=== PATIENT | female | born 1975 | race Caucasian/White ===

== ENCOUNTER → 2016-06-24 | Outpatient (CLI) | payer OTHER ==
[~2016-06-24] MED LIST: ALPR0.25; HYDR200T PO; IBUP800T; OXYC-305
== END | disposition home or self-care (01) ==
LOC: RAD 12:07
PROVIDERS: ATTEND Anesthesiology
DX: Z01.818 Encounter for other preprocedural examination (principal); M51.36 Other intervertebral disc degeneration, lumbar region
CPT/HCPCS: 71020

== ENCOUNTER → 2017-02-19 | Outpatient (CLI) | payer OTHER ==
[~2017-02-19] MED LIST changes: +IBUP-1223; -IBUP800T
== END | disposition home or self-care (01) ==
LOC: RAD 09:52
PROVIDERS: ATTEND Nurse Practitioner
DX: M47.816 Spondylosis without myelopathy or radiculopathy, lumbar region (principal)
CPT/HCPCS: 72114

== ENCOUNTER → 2017-04-01 | Outpatient (CLI) | payer OTHER | END | disposition home or self-care (01) | LOC: CFH 12:06 | PROVIDERS: ATTEND Nurse Practitioner | DX: M51.16 Intervertebral disc disorders with radiculopathy, lumbar region (principal); M47.26 Other spondylosis with radiculopathy, lumbar region; M51.36 Other intervertebral disc degeneration, lumbar region; Z98.890 Other specified postprocedural states | CPT/HCPCS: 72148 ==

== ENCOUNTER 2017-08-04 05:40 | Day surgery (SDC) | payer OTHER, MEDICAID ==
[2017-08-02 13:33] LABS: BASOPHILS # (AUTO) 0.03 x10^3/uL (0-0.1); BASOPHILS % (AUTO) 0 % (0-1); EOSINOPHILS # (AUTO) 0.15 x10^3/uL (0-0.4); EOSINOPHILS % (AUTO) 2 % (1-7); LYMPHOCYTES % (AUTO) 36 % (22-44); MD NO; MEAN CORPUSCULAR HEMOGLOBIN 28.8 pg (27.0-34.8); MEAN CORPUSCULAR HGB CONC 33.2 g/dL (32.4-35.8); MEAN CORPUSCULAR VOLUME 86.9 fL (80-100); MEAN PLATELET VOLUME 9.1 fL (7.4-10.4); MONOCYTES # (AUTO) 0.54 x10^3/uL (0.2-0.8); MONOCYTES % (AUTO) 7 % (2-9); NEUTROPHILS # (AUTO) 4.49 x10^3/uL (1.8-6.8); NEUTROPHILS % (AUTO) 55 % (42-75); PLATELET COUNT 275 x10^3/uL (130-400); RED BLOOD COUNT 4.75 x10^6/uL (3.82-5.3); RED CELL DISTRIBUTION WIDTH 15.7 % (9.6-15.2)
[2017-08-02 13:48] LABS: ALANINE AMINOTRANSFERASE 18 U/L (12-78); ALBUMIN 3.7 g/dL (3.4-5.0); ANION GAP 8 mmol/L (5-15); CALCIUM 9.1 mg/dL (8.5-10.1); CHLORIDE 109 mmol/L (98-107); CREATININE 0.73 mg/dL (0.55-1.02)
[2017-08-02 13:52] LABS: ALKALINE PHOSPHATASE 75 U/L (45-117); BILIRUBIN,TOTAL 0.3 mg/dL (0.2-1.0); TOTAL PROTEIN 7.4 g/dL (6.4-8.2)
[~2017-08-04] VITALS: Ht 170.2 cm; Wt 74.0 kg
[~2017-08-04 05:40] MED LIST changes: -HYDR200T PO; +HYDR200T72 PO; +ONDA8TAB9 PO; +OXYC-306 PO; +PANT20TA2 PO; +PREG150C PO; +TRAZ100T15 PO; +VARE0.5T PO
[2017-08-04] MEDS ORDERED: LACTATED RINGERS 1,000 ML IV SCH (06:36)
[2017-08-04 06:39] VITALS: BP 138/90
[2017-08-04] MEDS ORDERED: BUPIVACAINE 0.25% ONE (06:47)
[2017-08-04] MEDS ORDERED: FLUORESCEIN SODIUM 500 MG/5 ML ONE (06:47)
[2017-08-04] MEDS ORDERED: EPINEPHRINE 1 MG/ML, 1ML ONE (06:47)
[2017-08-04] MEDS ORDERED: OxyconTIN ER 20 MG TAB.ER PO ONE (07:00)
[2017-08-04] MEDS ORDERED: SCOPOLAMINE PATCH, 1.5MG PATCH.TD72 TD ONE ×2 (07:00→07:11)
[2017-08-04] MEDS ORDERED: ONDANSETRON ODT 8 MG PO ONE (07:00)
[2017-08-04] MEDS ORDERED: GABAPENTIN 300 MG CAPSULE PO ONE (07:00)
[2017-08-04] MEDS ORDERED: ACETAMINOPHEN 500 MG TABLET PO ONE (07:00)
[2017-08-04] MEDS ORDERED: MIDAZOLAM 1 MG/ML, 2ML ONE (07:07)
[2017-08-04] MEDS ORDERED: FENTANYL PF 250 MCG/5ML ONE (07:08)
[2017-08-04] MEDS ORDERED: PROPOFOL 10 MG/ML, 20ML ONE (07:09)
[2017-08-04] MEDS ORDERED: LIDOCAINE 2%, 10ML ONE (07:09)
[2017-08-04] MEDS ORDERED: ROCURONIUM 10MG/ML,5ML ONE (07:09)
[2017-08-04] MEDS ORDERED: CEFOTETAN PMX 2GM/50ML 50 ML ONE (07:10)
[2017-08-04] MEDS ORDERED: PHENYLEPHRINE 10 MG/ML ONE (07:10)
[2017-08-04] MEDS ORDERED: DEXAMETHASONE 4 MG/ML, 1ML ONE ×2 (07:11)
[2017-08-04] MEDS ORDERED: OxyconTIN ER 20 MG TAB.ER ONE (07:11)
[2017-08-04] MEDS ORDERED: ACETAMINOPHEN 500 MG TABLET ONE (07:11)
[2017-08-04] MEDS ORDERED: GABAPENTIN 300 MG CAPSULE ONE (07:12)
[2017-08-04] MEDS ORDERED: ONDANSETRON ODT 8 MG ONE (07:12)
[2017-08-04] MEDS ORDERED: DEXMEDETOMIDINE 200 MCG/2 ML ONE (07:28)
[2017-08-04] MEDS ORDERED: PROPOFOL 10 MG/ML, 50ML ONE (07:30)
[2017-08-04] MEDS ORDERED: OXYcodone 5 MG/5 ML ORAL.SOL UDC PO PRN ×2 (08:30→13:00)
[2017-08-04] MEDS ORDERED: hydrALAzine 20 MG/ML, 1ML IV PRN (08:30)
[2017-08-04] MEDS ORDERED: LORazepam 2 MG/ML, 1ML IVPush PRN (08:30)
[2017-08-04] MEDS ORDERED: PROMETHAZINE 25 MG/ML, 1ML IV PRN (08:30)
[2017-08-04] MEDS ORDERED: MEPERIDINE/PF 25MG/0.5ML IVPush PRN (08:30)
[2017-08-04] MEDS ORDERED: FENTANYL PF 100 MCG/2ML IV PRN (08:30)
[2017-08-04] MEDS ORDERED: morphine SULFATE 10 MG/ML, 1ML IV PRN (08:30)
[2017-08-04] MEDS ORDERED: LABETALOL 5MG/ML, 20ML IV PRN (08:30)
[2017-08-04] MEDS ORDERED: MEPERIDINE/PF 50 MG/ML ONE (09:24)
[2017-08-04] MEDS ORDERED: OXYcodone 5 MG/5 ML ORAL.SOL UDC ONE ×2 (10:09→14:11)
[2017-08-04] MEDS ORDERED: morphine SULFATE 10 MG/ML, 1ML IVPush PRN (13:00)
[2017-08-04] MEDS ORDERED: HYDROmorphone 2 MG/ML, 1ML IVPush PRN (13:00)
[2017-08-04 14:13] LABS: MEAN CORPUSCULAR HEMOGLOBIN 29.3 pg (27.0-34.8); MEAN CORPUSCULAR HGB CONC 33.5 g/dL (32.4-35.8); MEAN CORPUSCULAR VOLUME 87.5 fL (80-100); MEAN PLATELET VOLUME 8.8 fL (7.4-10.4); PLATELET COUNT 226 x10^3/uL (130-400); RED BLOOD COUNT 3.93 x10^6/uL (3.82-5.3); RED CELL DISTRIBUTION WIDTH 15.7 % (9.6-15.2)
[2017-08-04 14:20] LABS: ANION GAP 12 mmol/L (5-15); CALCIUM 8.2 mg/dL (8.5-10.1); CHLORIDE 109 mmol/L (98-107)
[2017-08-04 14:23] LABS: ALANINE AMINOTRANSFERASE 19 U/L (12-78); ALKALINE PHOSPHATASE 60 U/L (45-117); BILIRUBIN,TOTAL 0.2 mg/dL (0.2-1.0); CREATININE 0.93 mg/dL (0.55-1.02)
[2017-08-04 14:54] LABS: BASOPHILS % (AUTO) 0 % (0-1); EOSINOPHILS # (AUTO) 0.01 x10^3/uL (0-0.4); EOSINOPHILS % (AUTO) 0 % (1-7); LYMPHOCYTES # (AUTO) 0.85 x10^3/uL (1-3.4); LYMPHOCYTES % (AUTO) 7 % (22-44); MD SCAN; MONOCYTES # (AUTO) 0.08 x10^3/uL (0.2-0.8); MONOCYTES % (AUTO) 1 % (2-9); NEUTROPHILS # (AUTO) 10.84 x10^3/uL (1.8-6.8); NEUTROPHILS % (AUTO) 92 % (42-75)
== END 2017-08-04 16:15 ==
LOC: OUT 05:40
PROVIDERS: ATTEND Obstetrics & Gynecology
DX: N92.0 Excessive and frequent menstruation with regular cycle (principal); N85.8 Other specified noninflammatory disorders of uterus; N80.0 Endometriosis of uterus; J45.909 Unspecified asthma, uncomplicated; G43.909 Migraine, unspecified, not intractable, without status migrainosus; Z72.0 Tobacco use
CPT/HCPCS: 36415; 58262; 80053; 84703; 85025; 86850; 86900; 88307; J0171; J1100; J2175; J2250; J2370; J2704; J3010; J3490; J7120; Q0162; S0074

== ENCOUNTER → 2018-03-17 | Outpatient (CLI) | payer OTHER, MEDICAID ==
[~2018-03-17] MED LIST changes: +TRAZ-137 PO; -TRAZ100T15 PO
== END | disposition home or self-care (01) ==
LOC: CFH 13:24
PROVIDERS: ATTEND Nurse Practitioner
DX: M25.511 Pain in right shoulder (principal)

== ENCOUNTER 2018-07-08 09:45 | Emergency (ER) | payer OTHER, MEDICAID ==
[~2018-07-08] VITALS: Ht 170.2 cm; Wt 76.2 kg
[2018-07-08 09:55] VITALS: BP 124/89
--- NOTE | 2018-07-08 10:20 | NUR ---
computer system not allowing access to complete medication reconciliation.
== END 2018-07-08 10:26 | disposition home or self-care (01) ==
LOC: ED 10:15
DX: J01.10 Acute frontal sinusitis, unspecified (principal); J01.00 Acute maxillary sinusitis, unspecified
CPT/HCPCS: 99283

== ENCOUNTER 2018-07-13 22:09 | Emergency (ER) | payer OTHER, MEDICAID ==
[~2018-07-13] VITALS: Ht 170.2 cm; Wt 76.8 kg
--- NOTE | 2018-07-13 22:41 | NUR ---
PT TO CT
[2018-07-13] MEDS ORDERED: METOCLOPRAMIDE 5 MG/ML, 2ML ONE (22:47)
[2018-07-13] MEDS ORDERED: KETOROLAC 30 MG/1 ML ONE (22:47)
[2018-07-13] MEDS ORDERED: DIPHENHYDRAMINE 50 MG/ML, 1ML ONE (22:47)
[2018-07-13] MEDS ORDERED: METOCLOPRAMIDE 5 MG/ML, 2ML IVPush ONE (23:00)
[2018-07-13] MEDS ORDERED: DIPHENHYDRAMINE 50 MG/ML, 1ML IVPush ONE (23:00)
[2018-07-13] MEDS ORDERED: SODIUM CHLORIDE 0.9% 1,000ML IVBOLUS ONE (23:00)
[2018-07-13] MEDS ORDERED: KETOROLAC 30 MG/1 ML IVPush ONE (23:00)
[2018-07-13 23:24] VITALS: BP 174/96
--- NOTE | 2018-07-13 23:25 | NUR ---
PT MEDICATED PER MAR
== END 2018-07-14 00:31 | disposition home or self-care (01) ==
LOC: ED 23:30
DX: G43.909 Migraine, unspecified, not intractable, without status migrainosus (principal); G89.29 Other chronic pain
CPT/HCPCS: 70450; 96374; 96375; 99284; J1200; J1885; J2765; J7030

== ENCOUNTER 2018-07-15 21:58 | Emergency (ER) | payer OTHER, MEDICAID ==
[~2018-07-15] VITALS: Ht 170.2 cm; Wt 78.5 kg
[2018-07-15] MEDS ORDERED: PROCHLORPERAZINE 5 MG/ML, 2ML IVPush ONE (22:30)
[2018-07-15] MEDS ORDERED: KETOROLAC 30 MG/1 ML IVPush ONE (22:30)
[2018-07-15] MEDS ORDERED: DIPHENHYDRAMINE 50 MG/ML, 1ML IVPush ONE ×2 (22:30→23:00)
[2018-07-15] MEDS ORDERED: KETOROLAC 30 MG/1 ML ONE (22:46)
[2018-07-15] MEDS ORDERED: PROCHLORPERAZINE 5 MG/ML, 2ML ONE (22:46)
[2018-07-15] MEDS ORDERED: DIPHENHYDRAMINE 50 MG/ML, 1ML ONE (22:46)
[2018-07-15 22:48] LABS: BASOPHILS # (AUTO) 0.24 x10^3/uL (0-0.1); BASOPHILS % (AUTO) 2 % (0-1); EOSINOPHILS # (AUTO) 0.22 x10^3/uL (0-0.4); EOSINOPHILS % (AUTO) 2 % (1-7); LYMPHOCYTES # (AUTO) 4.94 x10^3/uL (1-3.4); LYMPHOCYTES % (AUTO) 36 % (22-44); MD NO; MEAN CORPUSCULAR HGB CONC 34.5 g/dL (32.4-35.8); MEAN CORPUSCULAR VOLUME 92.7 fL (80-100); MEAN PLATELET VOLUME 9.6 fL (7.4-10.4); MONOCYTES # (AUTO) 0.62 x10^3/uL (0.2-0.8); MONOCYTES % (AUTO) 5 % (2-9); NEUTROPHILS # (AUTO) 7.58 x10^3/uL (1.8-6.8); NEUTROPHILS % (AUTO) 56 % (42-75); PLATELET COUNT 215 x10^3/uL (130-400); RED BLOOD COUNT 4.46 x10^6/uL (3.82-5.3); RED CELL DISTRIBUTION WIDTH 13.1 % (9.6-15.2)
--- NOTE | 2018-07-15 22:55 | NUR ---
PT REPORTS A HEADACHE X4 DAYS AND SWELLING IN FEET. VS STABLE. CALL LIGHT IN PLACE. WILL CONTINUE TO MONITOR.
[2018-07-15 22:59] LABS: ALBUMIN 3.5 g/dL (3.4-5.0); ANION GAP 6 mmol/L (5-15); CALCIUM 8.6 mg/dL (8.5-10.1); CHLORIDE 110 mmol/L (98-107)
[2018-07-15 23:11] LABS: ALANINE AMINOTRANSFERASE 25 U/L (12-78); ALKALINE PHOSPHATASE 67 U/L (45-117); BILIRUBIN,TOTAL 0.5 mg/dL (0.2-1.0); CREATININE 0.93 mg/dL (0.55-1.02); TOTAL PROTEIN 6.9 g/dL (6.4-8.2)
--- NOTE | 2018-07-15 23:42 | NUR ---
PT REPORTS SHE CAN NOT URINATE AT THIS TIME "I WENT BEFORE I GOT HERE." PT DOES REPORT RELIEF FROM HER HEADACHE. PT NOW RESTING IN ROOM. NO ACUTE DISTRESS NOTED. WILL CONTINUE TO MONITOR.
[2018-07-16 00:06] VITALS: BP 121/81
--- NOTE | 2018-07-16 00:07 | NUR ---
NO URINE NEEDED PER DR BAZZI. PT DISCHARGED
== END 2018-07-16 00:17 | disposition home or self-care (01) ==
LOC: ED 23:16
DX: G43.019 Migraine without aura, intractable, without status migrainosus (principal); M54.5 Low back pain
CPT/HCPCS: 36415; 80053; 84443; 85025; 96374; 96375; 99283; J0780; J1200; J1885

== ENCOUNTER → 2018-08-31 | Outpatient (CLI) | payer OTHER, MEDICAID ==
[~2018-08-31] MED LIST changes: +GADOBUTROL 7.5 MMOL/7.5 ML PFS ONE
== END | disposition home or self-care (01) ==
LOC: CFH 07:59
PROVIDERS: ATTEND Nurse Practitioner
DX: G44.52 New daily persistent headache (NDPH) (principal); R53.1 Weakness
CPT/HCPCS: 70553; A9585

== ENCOUNTER 2018-09-18 00:57 | Emergency (ER) | payer OTHER, MEDICAID ==
[~2018-09-18] VITALS: Ht 170.2 cm; Wt 75.9 kg
[~2018-09-18 00:57] MED LIST changes: -GADOBUTROL 7.5 MMOL/7.5 ML PFS ONE
[2018-09-18 01:00] VITALS: BP 136/81
--- NOTE | 2018-09-18 01:06 | NUR ---
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 States awaiting consult for neurosurgery. C/o L sided extremity swelling and numbness tingling in L side, intermittently. Neuro otherwise appears intact in room. PERRLA. All monitoring applied. Call light within reach. Md at bedside for assessment.
[2018-09-18] MEDS ORDERED: DIPHENHYDRAMINE 50 MG/ML, 1ML ONE (01:19)
[2018-09-18] MEDS ORDERED: PROCHLORPERAZINE 5 MG/ML, 2ML ONE (01:19)
[2018-09-18] MEDS ORDERED: KETOROLAC 30 MG/1 ML ONE (01:19)
--- NOTE | 2018-09-18 01:20 | NUR ---
Pt in us. Tb medicated upon return.
[2018-09-18] MEDS ORDERED: DIPHENHYDRAMINE 50 MG/ML, 1ML IVPush ONE (01:30)
[2018-09-18] MEDS ORDERED: PROCHLORPERAZINE 5 MG/ML, 2ML IVPush ONE (01:30)
[2018-09-18] MEDS ORDERED: KETOROLAC 30 MG/1 ML IVPush ONE (01:30)
== END 2018-09-18 02:29 | disposition home or self-care (01) ==
LOC: ED 02:03
DX: G44.219 Episodic tension-type headache, not intractable (principal); G43.909 Migraine, unspecified, not intractable, without status migrainosus; F17.200 Nicotine dependence, unspecified, uncomplicated; M79.89 Other specified soft tissue disorders
CPT/HCPCS: 93971; 96374; 96375; 99284; J0780; J1200; J1885

== ENCOUNTER 2019-01-10 08:53 | Outpatient (CLI) | payer OTHER, MEDICAID ==
[2019-01-10] MEDS ORDERED: GADOTERATE 7.5 MMOL/15 ML SYR ONE (09:58)
== END 2019-01-10 23:59 | disposition home or self-care (01) ==
LOC: CFH 08:53
PROVIDERS: ATTEND Nurse Practitioner Family
DX: D32.9 Benign neoplasm of meninges, unspecified (principal); J32.0 Chronic maxillary sinusitis
CPT/HCPCS: 70544; 70553; A9575

== ENCOUNTER 2019-04-03 00:19 | Emergency (ER) | payer OTHER, MEDICAID ==
[~2019-04-03] VITALS: Ht 170.2 cm; Wt 68.5 kg
[2019-04-03 00:20] VITALS: BP 157/97
[2019-04-03 00:58] LABS: MICROSCOPIC NOT IND
[2019-04-03 01:02] LABS: CULTURE INDICATED? NO
[2019-04-03] MEDS ORDERED: METHOCARBAMOL 750 MG TABLET ONE (01:38)
[2019-04-03] MEDS ORDERED: IBUPROFEN 800 MG TABLET ONE (01:38)
[2019-04-03] MEDS ORDERED: IBUPROFEN 800 MG TABLET PO ONE (02:00)
[2019-04-03] MEDS ORDERED: METHOCARBAMOL 750 MG TABLET PO ONE (02:00)
== END 2019-04-03 01:44 | disposition home or self-care (01) ==
LOC: ED 00:48
DX: M54.5 Low back pain (principal); J32.0 Chronic maxillary sinusitis; R05 Cough; F17.200 Nicotine dependence, unspecified, uncomplicated; Z90.89 Acquired absence of other organs
CPT/HCPCS: 81003; 99283

== ENCOUNTER 2019-09-01 10:40 | Outpatient (CLI) | payer MEDICAID, OTHER ==
[~2019-09-01 10:40] MED LIST changes: -TRAZ-137 PO; +TRAZ-175 PO
[2019-09-01] MEDS ORDERED: SUMA100T4 PO (11:28)
[2019-09-01] MEDS ORDERED: [UNRECOGNIZED DRUG - OTHER] PO (11:28)
[2019-09-01] MEDS ORDERED: DOX PO (11:28)
[2019-09-01] MEDS ORDERED: AMIT75TA PO (11:28)
[2019-09-01 11:54] LABS: BASOPHILS # (AUTO) 0.03 x10^3/uL (0-0.1); BASOPHILS % (AUTO) 0 % (0-1); EOSINOPHILS % (AUTO) 0 % (1-7); LYMPHOCYTES # (AUTO) 1.98 x10^3/uL (1-3.4); LYMPHOCYTES % (AUTO) 12 % (22-44); MD NO; MEAN CORPUSCULAR HEMOGLOBIN 31.5 pg (27.0-34.8); MEAN CORPUSCULAR HGB CONC 33.6 g/dL (32.4-35.8); MEAN CORPUSCULAR VOLUME 93.8 fL (80-100); MONOCYTES # (AUTO) 0.62 x10^3/uL (0.2-0.8); MONOCYTES % (AUTO) 4 % (2-9); NEUTROPHILS % (AUTO) 84 % (42-75); PLATELET COUNT 232 x10^3/uL (130-400); RED BLOOD COUNT 4.66 x10^6/uL (3.82-5.3); RED CELL DISTRIBUTION WIDTH 13.7 % (9.6-15.2)
[2019-09-01 12:03] LABS: ALANINE AMINOTRANSFERASE 17 U/L (12-78); ALBUMIN 4.2 g/dL (3.4-5.0); ANION GAP 9 mmol/L (5-15); CALCIUM 9.5 mg/dL (8.5-10.1); CHLORIDE 107 mmol/L (98-107); CREATININE 0.77 mg/dL (0.55-1.02)
[2019-09-01 12:05] LABS: ALKALINE PHOSPHATASE 65 U/L (45-117); BILIRUBIN,TOTAL 0.3 mg/dL (0.2-1.0); TOTAL PROTEIN 7.5 g/dL (6.4-8.2)
[2019-09-06] MEDS ORDERED: MIDAZOLAM 1 MG/ML, 2ML ONE (15:53)
[2019-09-06] MEDS ORDERED: FENTANYL PF 250 MCG/5ML ONE ×2 (15:54→16:59)
[2019-09-06] MEDS ORDERED: CEFAZOLIN 1,000 MG ONE (16:45)
[2019-09-06] MEDS ORDERED: DEXAMETHASONE 4 MG/ML, 1ML ONE (16:45)
[2019-09-06] MEDS ORDERED: ONDANSETRON 2MG/ML, 2ML ONE (16:45)
[2019-09-06] MEDS ORDERED: PROPOFOL 10 MG/ML, 20ML ONE (16:45)
[2019-09-06] MEDS ORDERED: ROCURONIUM 10MG/ML,5ML ONE (16:45)
[2019-09-06] MEDS ORDERED: SUCCINYLCHOLINE 20 MG/ML, 10ML ONE (16:45)
[2019-09-06] MEDS ORDERED: NEOSTIGMINE 1 MG/ML, 10ML ONE (16:45)
[2019-09-06] MEDS ORDERED: GLYCOPYRROLATE 0.2MG/1ML, 5ML ONE (16:45)
[2019-09-06] MEDS ORDERED: SUGAMMADEX 200 MG/2 ML IVPush ONE (18:03)
[2019-09-06] MEDS ORDERED: KETOROLAC 30 MG/1 ML ONE (18:10)
== END 2019-09-01 23:59 | disposition home or self-care (01) ==
LOC: STAR 10:40
PROVIDERS: ATTEND Obstetrics & Gynecology
DX: Z01.818 Encounter for other preprocedural examination (principal); N83.201 Unspecified ovarian cyst, right side; I49.8 Other specified cardiac arrhythmias
CPT/HCPCS: 36415; 71046; 80053; 85025; 93005; U0001-CS

== ENCOUNTER 2019-09-06 15:00 | Day surgery (SDC) | payer MEDICAID, OTHER ==
[~2019-09-06] VITALS: Ht 170.2 cm; Wt 65.1 kg
[2019-09-06 14:45] VITALS: BP 131/88
[~2019-09-06 15:00] MED LIST changes: +AMIT75TA PO; +CHLORHEXIDINE 15 ML UDC MM STA; +DOX PO; +LACTATED RINGERS 1,000 ML IV SCH; +LIDOCAINE-MPF 1%, 2ML INFIL STA; +SUMA100T4 PO; +[UNRECOGNIZED DRUG - OTHER] PO
[2019-09-06] MEDS ORDERED: ACETAMINOPHEN 500 MG TABLET PO ONE (15:13)
[2019-09-06] MEDS ORDERED: PHENAZOPYRIDINE 200 MG TABLET ONE (15:27)
[2019-09-06] MEDS ORDERED: PHENAZOPYRIDINE 200 MG TABLET PO STA (15:27)
[2019-09-06] MEDS ORDERED: FLUORESCEIN SODIUM 500 MG/5 ML ONE (15:41)
[2019-09-06] MEDS ORDERED: BUPIVACAINE/PF-EPI 0.25% 1:200K ONE (15:41)
[2019-09-06] MEDS ORDERED: BACITRACIN 50,000 UNIT ONE (15:41)
[2019-09-06] MEDS ORDERED: MIDAZOLAM 1 MG/ML, 2ML ONE (16:22)
[2019-09-06] MEDS ORDERED: PROPOFOL 10 MG/ML, 20ML ONE (16:22)
[2019-09-06] MEDS ORDERED: DEXAMETHASONE 4 MG/ML, 1ML ONE (16:22)
[2019-09-06] MEDS ORDERED: KETOROLAC 30 MG/1 ML ONE (16:22)
[2019-09-06] MEDS ORDERED: SUGAMMADEX 200 MG/2 ML IVPush ONE (16:22)
[2019-09-06] MEDS ORDERED: ROCURONIUM 10 MG/ML,10ML ONE (16:22)
[2019-09-06] MEDS ORDERED: CEFAZOLIN 1,000 MG ONE (16:22)
[2019-09-06] MEDS ORDERED: ONDANSETRON 2MG/ML, 2ML ONE (16:22)
[2019-09-06] MEDS ORDERED: PHENAZOPYRIDINE 200 MG TABLET PO ONE (16:30)
[2019-09-06] MEDS ORDERED: HYDROmorphone 1 MG/ML, 1ML INJ IVPush PRN (17:30)
[2019-09-06] MEDS ORDERED: DIPHENHYDRAMINE 50 MG/ML, 1ML IVPush PRN (17:30)
[2019-09-06] MEDS ORDERED: ONDANSETRON 2MG/ML, 2ML IVPush PRN (17:30)
[2019-09-06] MEDS ORDERED: PROMETHAZINE 25 MG SUPP PR PRN (17:30)
[2019-09-06] MEDS ORDERED: LABETALOL 5MG/ML, 20ML IV PRN (17:30)
[2019-09-06] MEDS ORDERED: METHOCARBAMOL 1,000 MG in DEXTROSE 5% 100 ML IV PRN (17:30)
[2019-09-06] MEDS ORDERED: LORazepam 2 MG/ML, 1ML IVPush PRN (17:30)
[2019-09-06] MEDS ORDERED: OXYcodone 5 MG/5 ML ORAL.SOL UDC PO PRN (17:30)
[2019-09-06] MEDS ORDERED: MEPERIDINE/PF 25MG/0.5ML IVPush PRN (17:30)
[2019-09-06] MEDS ORDERED: DIAZEPAM 5 MG/ML, 2ML IVPush PRN (17:30)
[2019-09-06] MEDS: PROMETHAZINE 25 MG/ML, 1ML IVPush PRN ×2 (18:29→18:53)
[2019-09-06] MEDS ORDERED: FENTANYL PF 100 MCG/2ML ONE (18:32)
[2019-09-06] MEDS ORDERED: PROMETHAZINE 25 MG/ML, 1ML ONE (18:32)
[2019-09-06] MEDS ORDERED: DIAZEPAM 5 MG/ML, 2ML ONE (18:32)
[2019-09-06] MEDS: FENTANYL PF 100 MCG/2ML IV PRN ×2 (18:40→18:53)
[2019-09-06] MEDS ORDERED: HYDROmorphone 1 MG/ML, 1ML INJ ONE (18:55)
[2019-09-06] MEDS ORDERED: OXYcodone/APAP 5/325MG TABLET PO PRN (20:00)
[2019-09-06] MEDS ORDERED: morphine SULFATE 10 MG/ML, 1ML IV PRN (20:00)
[2019-09-06] MEDS ORDERED: IBUP-11 PO (20:24)
[2019-09-06] MEDS ORDERED: DOCU-131 PO (20:24)
[2019-09-06] MEDS ORDERED: SUMATRIPTAN 100 MG TABLET PO PRN (20:30)
[2019-09-06] MEDS ORDERED: OXYcodone/APAP 7.5/325MG TABLET PO SCH (20:30)
[2019-09-06] MEDS ORDERED: [UNRECOGNIZED DRUG - REMARK] MC SCH (20:30)
[2019-09-06] MEDS ORDERED: LACTATED RINGERS 1,000 ML IV SCH (20:30)
[2019-09-06] MEDS ORDERED: PREGABALIN 75 MG CAPSULE PO SCH (21:00)
[2019-09-06] MEDS ORDERED: DOXEPIN 25 MG CAPSULE PO SCH (21:00)
[2019-09-06] MEDS ORDERED: DOCUSATE 100 MG CAPSULE PO SCH (21:00)
[2019-09-06] MEDS ORDERED: ONDANSETRON 8 MG TABLET PO SCH (21:00)
[2019-09-06] MEDS ORDERED: HYDROXYCHLOROQUINE 200 MG TABLET PO SCH (21:00)
[2019-09-06] MEDS ORDERED: AMITRIPTYLINE 75 MG TABLET PO SCH (21:00)
[2019-09-07] MEDS ORDERED: KETOROLAC 30 MG/1 ML IV PRN
[2019-09-07] MEDS ORDERED: IBUPROFEN 600 MG TABLET PO SCH (06:00)
== END 2019-09-06 23:10 | disposition home or self-care (01) ==
LOC: OR 15:00 → 4NE 19:30 → OR 23:10
PROVIDERS: ATTEND Obstetrics & Gynecology
DX: R10.31 Right lower quadrant pain (principal); Z11.59 Encounter for screening for other viral diseases; D27.1 Benign neoplasm of left ovary; N39.3 Stress incontinence (female) (male); N81.10 Cystocele, unspecified; N73.6 Female pelvic peritoneal adhesions (postinfective); M32.9 Systemic lupus erythematosus, unspecified; J45.909 Unspecified asthma, uncomplicated; G43.909 Migraine, unspecified, not intractable, without status migrainosus; F17.210 Nicotine dependence, cigarettes, uncomplicated; Z79.891 Long term (current) use of opiate analgesic; Z79.899 Other long term (current) drug therapy; Z90.710 Acquired absence of both cervix and uterus; Z90.79 Acquired absence of other genital organ(s); Z98.890 Other specified postprocedural states
CPT/HCPCS: 36415; 57240; 57288; 58661; 86850; 86900; 88305; C1771; J0690; J1100; J1170; J1885; J2250; J2405; J2550; J2704; J3010; J3360; J7120; G0378; J2710; J0330

== ENCOUNTER 2019-12-18 20:44 | Inpatient (IN) | payer MEDICAID ==
[~2019-12-18] VITALS: Ht 170.2 cm; Wt 67.1 kg
[~2019-12-18 20:44] MED LIST changes: -CHLORHEXIDINE 15 ML UDC MM STA; +DOCU-131 PO; +IBUP-11 PO; -LACTATED RINGERS 1,000 ML IV SCH; -LIDOCAINE-MPF 1%, 2ML INFIL STA
[2019-12-18] MEDS ORDERED: HYDROmorphone 1 MG/ML, 1ML INJ IV ONE ×2 (21:00→23:00)
[2019-12-18] MEDS ORDERED: SODIUM CHLORIDE FLUSH 10ML SYR IVF ONE (21:00)
[2019-12-18] MEDS ORDERED: LABETALOL 5MG/ML, 20ML IVPush ONE (21:00)
[2019-12-18] MEDS ORDERED: KETOROLAC 30 MG/1 ML IVPush ONE (21:00)
[2019-12-18 21:07] LABS: BASOPHILS # (AUTO) 0.04 x10^3/uL (0-0.1); BASOPHILS % (AUTO) 0 % (0-1); EOSINOPHILS # (AUTO) 0.21 x10^3/uL (0-0.4); EOSINOPHILS % (AUTO) 2 % (1-7); LYMPHOCYTES # (AUTO) 3.94 x10^3/uL (1-3.4); LYMPHOCYTES % (AUTO) 41 % (22-44); MD NO; MEAN CORPUSCULAR HEMOGLOBIN 30.6 pg (27.0-34.8); MEAN CORPUSCULAR HGB CONC 33.5 g/dL (32.4-35.8); MEAN CORPUSCULAR VOLUME 91.5 fL (80-100); MEAN PLATELET VOLUME 9.4 fL (7.4-10.4); MONOCYTES # (AUTO) 0.74 x10^3/uL (0.2-0.8); MONOCYTES % (AUTO) 8 % (2-9); NEUTROPHILS # (AUTO) 4.63 x10^3/uL (1.8-6.8); NEUTROPHILS % (AUTO) 48 % (42-75); PLATELET COUNT 215 x10^3/uL (130-400); RED BLOOD COUNT 4.61 x10^6/uL (3.82-5.3)
[2019-12-18] MEDS ORDERED: LABETALOL 20 MG/4 ML ONE (21:07)
[2019-12-18] MEDS ORDERED: HYDROmorphone 1 MG/ML, 1ML INJ ONE ×2 (21:08→23:03)
[2019-12-18] MEDS ORDERED: KETOROLAC 30 MG/1 ML ONE (21:08)
[2019-12-18 21:19] LABS: ALANINE AMINOTRANSFERASE 12 U/L (12-78); ALBUMIN 3.5 g/dL (3.4-5.0); ANION GAP 7 mmol/L (5-15); CALCIUM 8.4 mg/dL (8.5-10.1); CHLORIDE 111 mmol/L (98-107); CREATININE 0.74 mg/dL (0.55-1.02)
--- NOTE | 2019-12-18 21:19 | NUR ---
PT BIB [facility] FOR C/O SUDDEN ONSET 6/10 CP WHILE AT REST AT HOME. PAIN DESCRIBED HEAVY PRESSURE THAT RADIATES INTO HER JAW AND LEFT ARM. PAIN IN CHEST REPRODUCABLE WITH PALPATION. +NAUSEA/DIZZINESS. NO RECENT TRAUMA OR ILLNESS. GIVEN 324MG ASA, 4MG ZOFRAN, AND A TOTAL OF 5 MG MORPHINE EN ROUTE. NO CHANGE IN PAIN NOTED. PT HYPERTENSIVE. BS 73. EKG PERFORMED, ERP AT BEDSIDE. PT MEDICATED PER ORDERS, RESTING COMFORTABLY AT THIS TIME, CALL LIGHT IN REACH.
[2019-12-18 21:23] LABS: ALKALINE PHOSPHATASE 77 U/L (45-117); BILIRUBIN,TOTAL 0.2 mg/dL (0.2-1.0); TOTAL PROTEIN 6.8 g/dL (6.4-8.2); TROPONIN I < 0.015 ng/mL (0.000-0.045)
[2019-12-18] MEDS ORDERED: OMNIPAQUE 350 MG/ML, 100ML BOTTLE ONE (22:17)
--- NOTE | 2019-12-19 00:44 | NUR ---
provider notified of elevated trop of 2.070. pt resting in bed, pt has no wants or needs at this time. pt on monitor, rn will continue to monitor pt vss
[2019-12-19] MEDS ORDERED: HEPARIN 5,000 UNITS/ML, 1ML IV ONE (01:00)
[2019-12-19] MEDS ORDERED: HEPARIN 25,000 UNITS/250ML PMX 250 ML IV PRN (01:00)
[2019-12-19 01:04] LABS: INTERNATIONAL NORMALIZED RATIO 1.03 (0.93-1.1); PROTHROMBIN TIME 10.6 Seconds (9.6-11.5)
[2019-12-19] MEDS ORDERED: HEPARIN 5,000 UNITS/ML, 1ML ONE (01:06)
[2019-12-19] MEDS ORDERED: HEPARIN 25,000 UNITS/250ML PMX 250 ML ONE (01:09)
[2019-12-19] MEDS ORDERED: DOCUSATE 100 MG CAPSULE PO PRN (01:30)
[2019-12-19] MEDS ORDERED: SUMATRIPTAN 100 MG TABLET PO PRN (01:30)
[2019-12-19] MEDS ORDERED: ENALAPRILAT 1.25 MG/ML, 2ML IVPush PRN (01:30)
[2019-12-19] MEDS ORDERED: HEPARIN 5,000 UNITS/ML, 1ML IV PRN (02:30)
[2019-12-19 02:39] VITALS: BP 123/81
[2019-12-19 03:00] LABS: CHOL/HDL RATIO 4.1; CHOLESTEROL, TOTAL 187 mg/dL (140-239); HDL CHOL % 25 % (28-40); HDL CHOLESTEROL (DIRECT) 46 mg/dL (40-60); LDL CHOLESTEROL,CALCULATED 128 mg/dL (54-169); LDL/HDL RATIO 2.8 (0.5-3.0); TRIGLYCERIDES 66 mg/dL (50-200); VLDL CHOLESTEROL 13 mg/dL (0-25)
[2019-12-19] MEDS: morphine SULFATE 10 MG/ML, 1ML IV PRN ×4 (03:35→23:54)
[2019-12-19] MEDS ORDERED: NITROGLYCERIN 0.4 MG BOTTLE (25 TABS) SL ONE (07:19)
[2019-12-19] MEDS: NITROGLYCERIN SINGLE TAB 0.4 MG SL PRN ×2 (07:24→07:30)
[2019-12-19] MEDS: SODIUM CHLORIDE FLUSH 10ML SYR IVF SCH ×2 (07:25→21:54)
[2019-12-19] MEDS: PREGABALIN 150 MG CAPSULE PO SCH ×3 (07:30→21:55)
[2019-12-19 07:38] VITALS: BP 186/106
[2019-12-19 07:39] VITALS: BP 131/86
[2019-12-19] MEDS ORDERED: ACETAMINOPHEN 325 MG TABLET PO PRN (08:00)
[2019-12-19] MEDS ORDERED: NICOTINE 14MG/24 HR PATCH.TD24 TD SCH (09:00)
[2019-12-19] MEDS ORDERED: NITROGLYCERIN OINT 2%, 1GM TP SCH (09:00)
[2019-12-19] MEDS: METOPROLOL TARTRATE 25 MG TAB PO SCH ×2 (09:22→17:20)
[2019-12-19] MEDS: SODIUM CHLORIDE 0.9% 1,000 ML IV SCH ×3 (10:00→21:26)
[2019-12-19] MEDS ORDERED: MIDAZOLAM 1 MG/ML, 5ML ONE (12:17)
[2019-12-19] MEDS ORDERED: FENTANYL PF 100 MCG/2ML ONE (12:17)
[2019-12-19] MEDS ORDERED: TICAGRELOR 90 MG TABLET ONE (12:18)
[2019-12-19] MEDS ORDERED: BIVALIRUDIN 250 MG ONE (12:18)
[2019-12-19] MEDS ORDERED: VERAPAMIL 2.5 MG/ML, 2ML ONE (12:18)
[2019-12-19] MEDS ORDERED: LIDOCAINE-MPF 1%, 5ML ONE (12:18)
[2019-12-19] MEDS ORDERED: HEPARIN 1,000 UNITS/ML, 10ML ONE (12:18)
[2019-12-19] MEDS ORDERED: NITROGLYCERIN 30 MCG/ML, 20ML VIAL ONE (12:21)
[2019-12-19 14:00] VITALS: BP 136/72
[2019-12-19 18:34] VITALS: BP 153/101
[2019-12-19] MEDS ORDERED: AMITRIPTYLINE 50 MG TABLET ONE (20:27)
[2019-12-19] MEDS ORDERED: ATORVASTATIN 80 MG TABLET PO SCH (21:00)
[2019-12-19] MEDS ORDERED: HYDROXYCHLOROQUINE 200 MG TABLET PO SCH (21:00)
[2019-12-19] MEDS ORDERED: AMITRIPTYLINE 75 MG TABLET PO SCH (21:00)
[2019-12-19] MEDS ORDERED: ONDANSETRON 4 MG TABLET PO PRN ×2 (21:30)
[2019-12-19 23:25] VITALS: BP 149/94
[2019-12-20] VITALS: BP 167/107
[2019-12-20] MEDS ORDERED: KETOROLAC 30 MG/1 ML IVPush PRN
[2019-12-20] MEDS ORDERED: ENALAPRILAT 1.25 MG/ML, 1ML ONE (00:06)
[2019-12-20] MEDS: SODIUM CHLORIDE 0.9% 1,000 ML IV SCH ×2 (00:26→07:15)
[2019-12-20 00:45] VITALS: BP 142/87
[2019-12-20] MEDS ORDERED: NITROGLYCERIN 0.4 MG BOTTLE (25 TABS) SL ONE (01:13)
[2019-12-20 05:28] LABS: BASOPHILS # (AUTO) 0.04 x10^3/uL (0-0.1); BASOPHILS % (AUTO) 0 % (0-1); EOSINOPHILS # (AUTO) 0.19 x10^3/uL (0-0.4); EOSINOPHILS % (AUTO) 2 % (1-7); LYMPHOCYTES # (AUTO) 3.79 x10^3/uL (1-3.4); LYMPHOCYTES % (AUTO) 44 % (22-44); MD NO; MEAN CORPUSCULAR HEMOGLOBIN 30.6 pg (27.0-34.8); MEAN CORPUSCULAR HGB CONC 33.2 g/dL (32.4-35.8); MEAN PLATELET VOLUME 9.8 fL (7.4-10.4); MONOCYTES # (AUTO) 0.65 x10^3/uL (0.2-0.8); MONOCYTES % (AUTO) 8 % (2-9); NEUTROPHILS # (AUTO) 3.87 x10^3/uL (1.8-6.8); NEUTROPHILS % (AUTO) 45 % (42-75); PLATELET COUNT 173 x10^3/uL (130-400); RED BLOOD COUNT 4.21 x10^6/uL (3.82-5.3); RED CELL DISTRIBUTION WIDTH 13.4 % (9.6-15.2)
[2019-12-20 05:40] LABS: ANION GAP 7 mmol/L (5-15); CALCIUM 8.9 mg/dL (8.5-10.1); CHLORIDE 113 mmol/L (98-107); CREATININE 0.56 mg/dL (0.55-1.02)
[2019-12-20] MEDS ORDERED: ASPIRIN 325 MG TABLET EC PO SCH (06:00)
[2019-12-20] MEDS: METOPROLOL TARTRATE 25 MG TAB PO SCH (06:16)
[2019-12-20] MEDS: SODIUM CHLORIDE FLUSH 10ML SYR IVF SCH (07:16)
[2019-12-20 07:19] VITALS: BP 121/82
[2019-12-20] MEDS: PREGABALIN 150 MG CAPSULE PO SCH (07:39)
[2019-12-20] MEDS ORDERED: METO25TA91 PO (08:56)
[2019-12-20] MEDS ORDERED: LISI-424 PO (08:56)
[2019-12-20] MEDS ORDERED: LISINOPRIL 5 MG TABLET PO SCH (18:00)
[2019-12-21] MEDS ORDERED: METOPROLOL SUCCINATE 25 MG TAB.ER.24H PO SCH (06:00)
== END 2019-12-20 10:10 | disposition home or self-care (01) | DRG 281 ==
LOC: ED 21:11 → EDIP 12-19 01:08 → 5SO 12-19 02:16 → DCLOUNGE 12-20 09:57
PROVIDERS: ADMIT Family Medicine; ATTEND Hospitalist
PROC: 4A023N7 Measurement of Cardiac Sampling and Pressure, Left Heart, Percutaneous Approach (ICD-10-PCS; principal; 2019-12-19)
PROC: B2111ZZ Fluoroscopy of Multiple Coronary Arteries using Low Osmolar Contrast (ICD-10-PCS; 2019-12-19)
PROC: B2151ZZ Fluoroscopy of Left Heart using Low Osmolar Contrast (ICD-10-PCS; 2019-12-19)
DX: I21.4 Non-ST elevation (NSTEMI) myocardial infarction (principal); I51.81 Takotsubo syndrome; J98.11 Atelectasis; K56.609 Unspecified intestinal obstruction, unspecified as to partial versus complete obstruction; M35.1 Other overlap syndromes; D32.9 Benign neoplasm of meninges, unspecified; E78.5 Hyperlipidemia, unspecified; F17.210 Nicotine dependence, cigarettes, uncomplicated; G43.909 Migraine, unspecified, not intractable, without status migrainosus; I10 Essential (primary) hypertension; M32.9 Systemic lupus erythematosus, unspecified; N83.291 Other ovarian cyst, right side; Z82.3 Family history of stroke; Z86.011 Personal history of benign neoplasm of the brain; Z90.711 Acquired absence of uterus with remaining cervical stump; Z79.899 Other long term (current) drug therapy; Z79.01 Long term (current) use of anticoagulants; Z90.710 Acquired absence of both cervix and uterus; Z90.722 Acquired absence of ovaries, bilateral
CPT/HCPCS: 36415; 71045; 71275; 74175; 80048; 80053; 80061; 84484; 85025; 85520; 85610; 85730; 93005; 93306; 93458; 99156; C1769; C1894; G0378; J0583; J1170; J1644; J1885; J2250; J3010; Q0162; Q9967; J2270; J7030

== ENCOUNTER 2019-12-20 19:48 | Emergency (ER) | payer MEDICAID ==
[~2019-12-20] VITALS: Ht 170.2 cm; Wt 60.0 kg
[~2019-12-20 19:48] MED LIST changes: +LISI-424 PO; +METO25TA91 PO
--- NOTE | 2019-12-20 20:50 | NUR ---
Patient presents to ER c/o acute CP since 184. Patient was admitted for an MD on the and d/c this am. Patient states CP started acutely while sitting on the couch. She describes it as someone "kicking her in the chest" and the pain radiates to her left arm and neck. Per EMS, patient received 324 ASA, Nitro x2 and 50 Fentanyl. Patient is in NAD. Respirations even and unlabored.
[2019-12-20] MEDS ORDERED: MORPHINE SULFATE 4 MG/ML, 1ML IVPush ONE (21:00)
[2019-12-20] MEDS ORDERED: MORPHINE SULFATE 4 MG/ML, 1ML ONE (21:02)
[2019-12-20 21:06] LABS: BASOPHILS # (AUTO) 0.02 x10^3/uL (0-0.1); BASOPHILS % (AUTO) 0 % (0-1); EOSINOPHILS # (AUTO) 0.24 x10^3/uL (0-0.4); EOSINOPHILS % (AUTO) 2 % (1-7); LYMPHOCYTES % (AUTO) 37 % (22-44); MD NO; MEAN CORPUSCULAR HGB CONC 33.6 g/dL (32.4-35.8); MEAN CORPUSCULAR VOLUME 92.1 fL (80-100); MEAN PLATELET VOLUME 9.6 fL (7.4-10.4); MONOCYTES # (AUTO) 0.52 x10^3/uL (0.2-0.8); MONOCYTES % (AUTO) 5 % (2-9); NEUTROPHILS # (AUTO) 5.43 x10^3/uL (1.8-6.8); NEUTROPHILS % (AUTO) 55 % (42-75); PLATELET COUNT 179 x10^3/uL (130-400); RED BLOOD COUNT 4.16 x10^6/uL (3.82-5.3); RED CELL DISTRIBUTION WIDTH 13.1 % (9.6-15.2)
[2019-12-20] MEDS ORDERED: ONDANSETRON 2MG/ML, 2ML ONE (21:14)
[2019-12-20 21:17] LABS: ANION GAP 6 mmol/L (5-15); CALCIUM 8.5 mg/dL (8.5-10.1); CHLORIDE 112 mmol/L (98-107); CREATININE 0.68 mg/dL (0.55-1.02)
[2019-12-20] MEDS ORDERED: ONDANSETRON 2MG/ML, 2ML IVPush ONE (21:30)
[2019-12-20 22:33] VITALS: BP 123/75
== END 2019-12-20 22:35 | disposition home or self-care (01) ==
LOC: ED 21:13
DX: R07.2 Precordial pain (principal); I10 Essential (primary) hypertension; R94.31 Abnormal electrocardiogram [ECG] [EKG]
CPT/HCPCS: 36415; 80048; 85025; 93005; 96374; 96375; 99284; J2270; J2405

== ENCOUNTER → 2020-01-26 | Outpatient (CLI) | payer MEDICAID | END | disposition home or self-care (01) | LOC: CFH 14:26 | PROVIDERS: ATTEND Internal Medicine Cardiovascular Disease | DX: I51.81 Takotsubo syndrome (principal) | CPT/HCPCS: 93306 ==

== ENCOUNTER → 2020-06-24 | Outpatient (CLI) | payer MEDICAID, OTHER ==
[~2020-06-24] MED LIST changes: -LISI-424 PO; +LISI-606 PO; -OXYC-306 PO; +OXYC1TAB17 PO
== END | disposition home or self-care (01) ==
LOC: CFH 06:40
PROVIDERS: ATTEND Obstetrics & Gynecology
DX: N63.41 Unspecified lump in right breast, subareolar (principal); N92.0 Excessive and frequent menstruation with regular cycle; Z90.710 Acquired absence of both cervix and uterus; Z90.721 Acquired absence of ovaries, unilateral
CPT/HCPCS: 76642; 76830; 77062; 77066; G0279

== ENCOUNTER 2020-07-15 21:32 | Inpatient (IN) | payer MEDICAID ==
[~2020-07-15] VITALS: Ht 170.2 cm; Wt 87.4 kg
[2020-07-15] MEDS ORDERED: ONDANSETRON 2MG/ML, 2ML ONE (21:44)
[2020-07-15] MEDS ORDERED: MORPHINE SULFATE 4 MG/ML, 1ML ONE ×2 (21:44→22:21)
[2020-07-15] MEDS: MORPHINE SULFATE 4 MG/ML, 1ML IVPush PRN ×2 (21:48→22:23)
--- NOTE | 2020-07-15 21:48 | NUR ---
VERBAL ORDER FROM DR GONZALEZ FOR 4 MG ZOFRAN IV ONE TIME. VERBAL ORDER REPEATED, 4 MG ZOFRAN GIVEN 2147.
--- NOTE | 2020-07-15 21:50 | NUR ---
BIBA FOR CC CP 12/13 "FEELS LIKE AN ELEPHANT IS SITTING ON MY CHEST, THIS HURTS WORSE THEN MY LAST TWO HEART ATTACKS". CP BECOMING WORSE EN ROUTE TO ER, NOW PAIN IN LEFT ARM AND LEFT NECK, 12/13. HX OF 2 IL IN 12/2019 THAT WERE 2 DAYS APART. PT STATES HER EKG'S ARE "ALWAYS NORMAL BUT MY TROPONIN COMES BACK ELEVATED". EMS PLACED PIV IN RIGHT AC AND ADMINISTERED 324 aspirin, 100 mg fentanyl, and 4 mg zofran. pt reports no relief. daughter at bedside
[2020-07-15] MEDS ORDERED: SODIUM CHLORIDE FLUSH 10ML SYR IVF ONE (22:00)
[2020-07-15 22:11] LABS: BASOPHILS % (AUTO) 1 % (0-1); EOSINOPHILS % (AUTO) 3 % (1-7); LYMPHOCYTES % (AUTO) 31 % (22-44); MD NO; MEAN CORPUSCULAR HEMOGLOBIN 30.1 pg (27.0-34.8); MEAN CORPUSCULAR HGB CONC 33.9 g/dL (32.4-35.8); MEAN PLATELET VOLUME 8.5 fL (7.4-10.4); MONOCYTES % (AUTO) 7 % (2-9); NEUTROPHILS % (AUTO) 59 % (42-75); PLATELET COUNT 256 x10^3/uL (130-400); RED BLOOD COUNT 4.75 x10^6/uL (3.82-5.3); RED CELL DISTRIBUTION WIDTH 12.8 % (9.6-15.2)
[2020-07-15 22:19] LABS: ALANINE AMINOTRANSFERASE 19 U/L (12-78); ALBUMIN 3.9 g/dL (3.4-5.0); ANION GAP 8 mmol/L (5-15); CALCIUM 9.1 mg/dL (8.5-10.1); CHLORIDE 106 mmol/L (98-107); CREATININE 0.81 mg/dL (0.55-1.02)
--- NOTE | 2020-07-15 22:22 | NUR ---
PT STATES NO CHANGE IN PAIN RELIEF. MD NOTIFIED, ORDERS TO GIVE 4 MG MORPHINE AGAIN.
[2020-07-15 22:24] LABS: ALKALINE PHOSPHATASE 60 U/L (45-117); BILIRUBIN,TOTAL 0.3 mg/dL (0.2-1.0); TOTAL PROTEIN 7.1 g/dL (6.4-8.2)
[2020-07-15 22:25] LABS: TROPONIN I 0.216 ng/mL (0.000-0.045)
[2020-07-15] MEDS ORDERED: HYDROmorphone 1 MG/ML, 1ML INJ IV ONE (22:30)
[2020-07-15] MEDS ORDERED: HEPARIN 25,000 UNITS/250ML PMX 250 ML IV PRN (23:00)
[2020-07-15] MEDS ORDERED: HEPARIN 5,000 UNITS/ML, 1ML IV ONE (23:00)
[2020-07-15] MEDS ORDERED: NITROGLYCERIN OINT 2%, 1GM TP ONE ×2 (23:00→23:04)
[2020-07-15] MEDS ORDERED: HYDROmorphone 1 MG/ML, 1ML INJ ONE (23:11)
--- NOTE | 2020-07-15 23:21 | NUR ---
PT TO CT
[2020-07-15] MEDS ORDERED: OMNIPAQUE 350 MG/ML, 75ML BOTTLE ONE (23:35)
--- NOTE | 2020-07-15 23:41 | NUR ---
START HEPARIN AFTER RESULTS FROM [facility]A ARE BACK PER DR. GONZALEZ.
[2020-07-16] VITALS (8 sets, daily range): BP systolic 105–158; BP diastolic 71–101
[2020-07-16] MEDS ORDERED: HEPARIN 5,000 UNITS/ML, 1ML IV PRN (00:30)
[2020-07-16] MEDS ORDERED: OXYcodone/APAP 7.5/325MG TABLET PO PRN (00:30)
[2020-07-16] MEDS ORDERED: NITROGLYCERIN OINT 2%, 1GM TP SCH (00:30)
[2020-07-16] MEDS ORDERED: POTASSIUM CHLORIDE 20 MEQ TAB.ER.PRT PO ONE (00:30)
[2020-07-16] MEDS ORDERED: HEPARIN 5,000 UNITS/ML, 1ML ONE (00:46)
[2020-07-16] MEDS ORDERED: HEPARIN 25,000 UNITS/250ML PMX 250 ML ONE (00:46)
--- NOTE | 2020-07-16 01:05 | NUR ---
REPORT GIVEN TO AGUILAR DA SILVA
--- NOTE | 2020-07-16 01:05 | NUR ---
HEPARIN GTT INFUSING UPON ADMISSION
[2020-07-16] MEDS: AMITRIPTYLINE 75 MG TABLET PO SCH ×2 (02:06→20:43)
[2020-07-16] MEDS: HYDROXYCHLOROQUINE 200 MG TABLET PO SCH ×2 (02:06→20:42)
[2020-07-16] MEDS: morphine SULFATE 10 MG/ML, 1ML IV PRN ×3 (02:08→05:18)
[2020-07-16] MEDS: ONDANSETRON 2MG/ML, 2ML IVPush PRN ×2 (02:19→08:42)
[2020-07-16] MEDS: PREGABALIN 150 MG CAPSULE PO SCH ×4 (02:19→20:43)
[2020-07-16] MEDS ORDERED: NITROGLYCERIN 0.4 MG BOTTLE (25 TABS) SL PRN (04:30)
[2020-07-16] MEDS ORDERED: METOPROLOL SUCCINATE 25 MG TAB.ER.24H PO SCH (06:00)
[2020-07-16 06:17] LABS: CHLORIDE 104 mmol/L (98-107)
[2020-07-16 06:25] LABS: ANION GAP 6 mmol/L (5-15); CHOL/HDL RATIO 3.7; CHOLESTEROL, TOTAL 227 mg/dL (140-239); CREATININE 0.74 mg/dL (0.55-1.02); HDL CHOL % 27 % (28-40); HDL CHOLESTEROL (DIRECT) 61 mg/dL (40-60); LDL CHOLESTEROL,CALCULATED 141 mg/dL (54-169); LDL/HDL RATIO 2.3 (0.5-3.0); TRIGLYCERIDES 123 mg/dL (50-200); VLDL CHOLESTEROL 25 mg/dL (0-25)
[2020-07-16 06:35] LABS: AMPHETAMINE SCREEN, URINE Negative (Negative); BARBITURATE SCREEN, URINE Negative (Negative); BENZODIAZEPINE SCREEN, URINE Negative (Negative); CANNABINOID SCREEN, URINE Negative (Negative); COCAINE SCREEN, URINE Negative (Negative); METHADONE SCREEN, URINE Negative (Negative); OPIATE SCREEN, URINE Positive (Negative)
[2020-07-16] MEDS: HYDROmorphone 1 MG/ML, 1ML INJ IV PRN ×3 (06:48→20:46)
[2020-07-16] MEDS: LISINOPRIL 5 MG TABLET PO SCH (08:27)
[2020-07-16] MEDS: DOCUSATE 100 MG CAPSULE PO SCH (08:27)
[2020-07-16] MEDS: METOPROLOL SUCCINATE 25 MG TAB.ER.24H PO SCH ×2 (08:27→20:45)
[2020-07-16] MEDS: PANTOPRAZOLE 40 MG IV IVPush SCH ×2 (08:28→20:46)
[2020-07-16] MEDS ORDERED: KETOROLAC 30 MG/1 ML IV ONE (08:30)
[2020-07-16 09:17] LABS: HCT (SEDRATE) 42.9 % (34.6-47.8)
[2020-07-16] MEDS ORDERED: SODIUM CHLORIDE 0.9% 1,000 ML IV SCH (11:00)
[2020-07-16] MEDS ORDERED: FENTANYL PF 100 MCG/2ML ONE (12:05)
[2020-07-16] MEDS ORDERED: MIDAZOLAM 1 MG/ML, 2ML ONE ×2 (12:05→13:20)
[2020-07-16] MEDS ORDERED: LIDOCAINE-MPF 1%, 5ML ONE (12:06)
[2020-07-16] MEDS ORDERED: HEPARIN 1,000 UNITS/ML, 10ML ONE (12:06)
[2020-07-16] MEDS ORDERED: VERAPAMIL 2.5 MG/ML, 2ML ONE (12:06)
[2020-07-16] MEDS: NITROGLYCERIN OINT 2%, 1GM TP SCH ×2 (12:30→17:12)
[2020-07-16] MEDS ORDERED: LIDOCAINE 2%, 20ML ONE (13:11)
[2020-07-16] MEDS ORDERED: BIVALIRUDIN 250 MG ONE (13:18)
[2020-07-16] MEDS: KETOROLAC 30 MG/1 ML IVPush PRN ×2 (16:55→23:03)
[2020-07-16] MEDS: ACETAMINOPHEN 325 MG TABLET PO PRN (20:42)
[2020-07-16] MEDS ORDERED: ATORVASTATIN 40 MG TABLET PO SCH (21:00)
[2020-07-17] MEDS: NITROGLYCERIN OINT 2%, 1GM TP SCH ×4 (00:16→18:03)
[2020-07-17 00:19] VITALS: BP 112/78
[2020-07-17] MEDS: KETOROLAC 30 MG/1 ML IVPush PRN (05:05)
[2020-07-17 05:35] LABS: BASOPHILS % (AUTO) 1 % (0-1); EOSINOPHILS % (AUTO) 2 % (1-7); HCT (SEDRATE) 41.1 % (34.6-47.8); LYMPHOCYTES % (AUTO) 21 % (22-44); MEAN CORPUSCULAR HEMOGLOBIN 29.9 pg (27.0-34.8); MEAN CORPUSCULAR HGB CONC 33.5 g/dL (32.4-35.8); MEAN PLATELET VOLUME 8.6 fL (7.4-10.4); MONOCYTES % (AUTO) 9 % (2-9); NEUTROPHILS % (AUTO) 68 % (42-75); PLATELET COUNT 216 x10^3/uL (130-400); RED BLOOD COUNT 4.65 x10^6/uL (3.82-5.3); RED CELL DISTRIBUTION WIDTH 12.7 % (9.6-15.2)
[2020-07-17 05:38] LABS: MD NO
[2020-07-17 05:53] LABS: ALBUMIN 3.3 g/dL (3.4-5.0); ANION GAP 6 mmol/L (5-15); CALCIUM 8.5 mg/dL (8.5-10.1); CHLORIDE 110 mmol/L (98-107)
[2020-07-17 06:00] LABS: ALANINE AMINOTRANSFERASE 25 U/L (12-78); ALKALINE PHOSPHATASE 63 U/L (45-117); BILIRUBIN,TOTAL 0.2 mg/dL (0.2-1.0); CREATININE 0.77 mg/dL (0.55-1.02); TOTAL PROTEIN 6.2 g/dL (6.4-8.2)
[2020-07-17 08:19] VITALS: BP 154/103
[2020-07-17] MEDS: PREGABALIN 150 MG CAPSULE PO SCH ×3 (08:25→21:57)
[2020-07-17] MEDS: METOPROLOL SUCCINATE 25 MG TAB.ER.24H PO SCH ×2 (08:26→21:56)
[2020-07-17] MEDS: LISINOPRIL 5 MG TABLET PO SCH (08:26)
[2020-07-17] MEDS: CLOPIDOGREL 75 MG TABLET PO SCH (08:26)
[2020-07-17] MEDS: DOCUSATE 100 MG CAPSULE PO SCH (08:26)
[2020-07-17] MEDS: ASPIRIN 81 MG TABLET EC PO SCH (08:30)
[2020-07-17] MEDS: HYDROmorphone 1 MG/ML, 1ML INJ IV PRN ×3 (08:48→21:56)
[2020-07-17] MEDS: INDOMETHACIN 50 MG CAPSULE PO SCH ×3 (10:22→21:57)
[2020-07-17 10:24] VITALS: BP 144/100
[2020-07-17] MEDS: ONDANSETRON 2MG/ML, 2ML IVPush PRN (12:58)
[2020-07-17 13:48] VITALS: BP 127/88
[2020-07-17] MEDS ORDERED: CYCLOBENZAPRINE 10 MG TABLET PO PRN (16:30)
[2020-07-17] MEDS: ACETAMINOPHEN 325 MG TABLET PO PRN (18:03)
[2020-07-17 18:34] VITALS: BP 109/77
[2020-07-17] MEDS ORDERED: ATORVASTATIN 40 MG TABLET PO SCH (21:00)
[2020-07-17] MEDS: HYDROXYCHLOROQUINE 200 MG TABLET PO SCH (21:55)
[2020-07-17] MEDS: AMITRIPTYLINE 75 MG TABLET PO SCH (21:57)
[2020-07-17 22:00] VITALS: BP 108/76
[2020-07-18 00:19] VITALS: BP 101/70
[2020-07-18] MEDS: NITROGLYCERIN OINT 2%, 1GM TP SCH ×2 (00:42→06:17)
[2020-07-18 05:35] LABS: BASOPHILS % (AUTO) 1 % (0-1); EOSINOPHILS % (AUTO) 2 % (1-7); LYMPHOCYTES % (AUTO) 30 % (22-44); MEAN CORPUSCULAR HEMOGLOBIN 30.6 pg (27.0-34.8); MEAN CORPUSCULAR HGB CONC 34.2 g/dL (32.4-35.8); MEAN PLATELET VOLUME 8.9 fL (7.4-10.4); MONOCYTES % (AUTO) 10 % (2-9); NEUTROPHILS % (AUTO) 58 % (42-75); PLATELET COUNT 192 x10^3/uL (130-400); RED BLOOD COUNT 4.32 x10^6/uL (3.82-5.3); RED CELL DISTRIBUTION WIDTH 12.7 % (9.6-15.2)
[2020-07-18 05:42] LABS: MD NO
[2020-07-18 05:47] LABS: ANION GAP 6 mmol/L (5-15); CALCIUM 8.3 mg/dL (8.5-10.1); CHLORIDE 108 mmol/L (98-107); CHOLESTEROL, TOTAL 168 mg/dL (140-239); CREATININE 0.75 mg/dL (0.55-1.02); TRIGLYCERIDES 112 mg/dL (50-200); VLDL CHOLESTEROL 22 mg/dL (0-25)
[2020-07-18 05:51] LABS: CHOL/HDL RATIO 2.8; HDL CHOL % 35 % (28-40); HDL CHOLESTEROL (DIRECT) 59 mg/dL (40-60); LDL CHOLESTEROL,CALCULATED 87 mg/dL (54-169); LDL/HDL RATIO 1.5 (0.5-3.0)
[2020-07-18] MEDS ORDERED: PANTOPRAZOLE 40MG TABLET PO SCH (06:00)
[2020-07-18] MEDS: ASPIRIN 81 MG TABLET EC PO SCH (06:16)
[2020-07-18 08:50] VITALS: BP 105/71
[2020-07-18] MEDS: PREGABALIN 150 MG CAPSULE PO SCH ×2 (09:42→16:00)
[2020-07-18] MEDS: CLOPIDOGREL 75 MG TABLET PO SCH (09:42)
[2020-07-18] MEDS: METOPROLOL SUCCINATE 25 MG TAB.ER.24H PO SCH (09:42)
[2020-07-18] MEDS: LISINOPRIL 5 MG TABLET PO SCH (09:42)
[2020-07-18] MEDS: DOCUSATE 100 MG CAPSULE PO SCH (09:43)
[2020-07-18] MEDS: INDOMETHACIN 50 MG CAPSULE PO SCH ×2 (09:43→16:00)
[2020-07-18] MEDS: HYDROmorphone 1 MG/ML, 1ML INJ IV PRN (09:49)
[2020-07-18] MEDS ORDERED: BUTALB/APAP/CAFFEINE 50MG/325MG/40MG PO PRN (10:00)
[2020-07-18 13:28] VITALS: BP 113/82
[2020-07-18] MEDS ORDERED: ATOR40TA78 PO (14:58)
[2020-07-18] MEDS ORDERED: PANT40TA6 PO (14:58)
[2020-07-18] MEDS ORDERED: ASPI81TA45 PO (14:58)
[2020-07-18] MEDS ORDERED: INDO50CA15 PO (14:58)
[2020-07-18] MEDS ORDERED: CLOP75TA PO (14:58)
== END 2020-07-18 16:30 | disposition home or self-care (01) | DRG 281 ==
LOC: ED 23:31 → EDIP 23:47 → 5SO 07-16 00:05 → DCLOUNGE 07-18 16:15
PROVIDERS: ADMIT Family Medicine; ATTEND Internal Medicine
PROC: 4A023N7 Measurement of Cardiac Sampling and Pressure, Left Heart, Percutaneous Approach (ICD-10-PCS; principal; 2020-07-16)
PROC: B2111ZZ Fluoroscopy of Multiple Coronary Arteries using Low Osmolar Contrast (ICD-10-PCS; 2020-07-16)
PROC: B2151ZZ Fluoroscopy of Left Heart using Low Osmolar Contrast (ICD-10-PCS; 2020-07-16)
DX: I21.4 Non-ST elevation (NSTEMI) myocardial infarction (principal); I24.1 Dressler's syndrome; I51.81 Takotsubo syndrome; J98.11 Atelectasis; G43.909 Migraine, unspecified, not intractable, without status migrainosus; I10 Essential (primary) hypertension; G89.29 Other chronic pain; I77.6 Arteritis, unspecified; M32.9 Systemic lupus erythematosus, unspecified; E78.5 Hyperlipidemia, unspecified; N63.10 Unspecified lump in the right breast, unspecified quadrant; I25.10 Atherosclerotic heart disease of native coronary artery without angina pectoris; Z79.899 Other long term (current) drug therapy; Z86.011 Personal history of benign neoplasm of the brain; Z87.891 Personal history of nicotine dependence; Z79.891 Long term (current) use of opiate analgesic; I25.2 Old myocardial infarction
CPT/HCPCS: 36415; 86146; 86147; 86148; 93458; 96361; 96374; 99291; J3490; 71045; 71275; 80048; 80053; 80061; 80307; 83520; 83698; 83735; 83880; 84100; 84484; 84703; 85025; 85379; 85520; 85651; 86140; 86160; 86162; 86225; 93005; 93306; 93356; 93880; 99156; 99157; C1760; C1769; C1894; G0378; J0583; J1170; J1644; J1885; J2250; J2405; J3010; Q9967; C9113; J2270; J7030

== ENCOUNTER → 2020-08-22 | Outpatient (CLI) | payer MEDICAID ==
[~2020-08-22] MED LIST changes: +ASPI81TA45 PO; +ATOR40TA78 PO; +CLOP75TA PO; +DOXE25CA PO; +INDO50CA15 PO; +LISI2.5T PO; +PANT40TA6 PO
[2020-08-22 11:56] LABS: ALANINE AMINOTRANSFERASE 31 U/L (12-78); ALBUMIN 3.7 g/dL (3.4-5.0); ANION GAP 4 mmol/L (5-15); BASOPHILS % (AUTO) 1 % (0-1); CHLORIDE 105 mmol/L (98-107); CREATININE 0.86 mg/dL (0.55-1.02); EOSINOPHILS % (AUTO) 4 % (1-7); LYMPHOCYTES % (AUTO) 36 % (22-44); MD NO; MEAN CORPUSCULAR HEMOGLOBIN 29.9 pg (27.0-34.8); MEAN CORPUSCULAR HGB CONC 33.5 g/dL (32.4-35.8); MEAN PLATELET VOLUME 8.7 fL (7.4-10.4); MONOCYTES % (AUTO) 6 % (2-9); NEUTROPHILS % (AUTO) 53 % (42-75); PLATELET COUNT 224 x10^3/uL (130-400); RED BLOOD COUNT 4.57 x10^6/uL (3.82-5.3); RED CELL DISTRIBUTION WIDTH 12.4 % (9.6-15.2)
[2020-08-22 12:06] LABS: ALKALINE PHOSPHATASE 75 U/L (45-117); BILIRUBIN,TOTAL 0.3 mg/dL (0.2-1.0); TOTAL PROTEIN 6.9 g/dL (6.4-8.2)
== END | disposition home or self-care (01) ==
LOC: STAR 10:03
PROVIDERS: ATTEND Surgery
DX: Z01.818 Encounter for other preprocedural examination (principal); I21.09 ST elevation (STEMI) myocardial infarction involving other coronary artery of anterior wall; I25.89 Other forms of chronic ischemic heart disease; R94.31 Abnormal electrocardiogram [ECG] [EKG]; Z20.822 Contact with and (suspected) exposure to COVID-19
CPT/HCPCS: 36415; 80053; 85025; 93005; U0003; U0005

== ENCOUNTER 2020-08-28 09:41 | Day surgery (SDC) | payer MEDICAID ==
[~2020-08-28] VITALS: Ht 170.2 cm; Wt 75.0 kg
[~2020-08-28 09:41] MED LIST changes: +EPHEDRINE 50 MG/ML, 1ML IVPush PRN; +LABETALOL 5MG/ML, 20ML IV PRN; +ONDANSETRON 2MG/ML, 2ML IVPush PRN; +OXYcodone 5 MG/5 ML ORAL.SOL UDC PO PRN; +PROMETHAZINE 25 MG/ML, 1ML IVPush PRN; +hydrALAzine 20 MG/ML, 1ML IV PRN
[2020-08-28] MEDS ORDERED: LIDOCAINE 1%-EPI 1:100K, 20ML ONE (10:15)
[2020-08-28] MEDS ORDERED: ACETAMINOPHEN 500 MG TABLET PO ONE (11:51)
[2020-08-28 11:55] VITALS: BP 138/89
[2020-08-28] MEDS ORDERED: FENTANYL PF 100 MCG/2ML ONE ×2 (11:56→14:27)
[2020-08-28] MEDS ORDERED: MIDAZOLAM 1 MG/ML, 2ML ONE (11:56)
[2020-08-28] MEDS ORDERED: CHLORHEXIDINE 15 ML UDC PO ONE (12:00)
[2020-08-28] MEDS ORDERED: BUPIVACAINE/PF 0.5% ONE (12:20)
[2020-08-28] MEDS ORDERED: EPINEPHRINE 1 MG/ML, 1ML ONE (12:20)
[2020-08-28] MEDS ORDERED: LIDOCAINE-MPF 1%, 2ML INFIL ONE (12:30)
[2020-08-28] MEDS ORDERED: LACTATED RINGERS 1,000 ML IV SCH (12:30)
[2020-08-28] MEDS ORDERED: PROPOFOL 10 MG/ML, 20ML ONE (12:55)
[2020-08-28] MEDS ORDERED: ONDANSETRON 2MG/ML, 2ML ONE (12:55)
[2020-08-28] MEDS ORDERED: CEFAZOLIN 1,000 MG ONE (12:55)
[2020-08-28] MEDS ORDERED: DEXAMETHASONE 4 MG/ML, 1ML ONE (12:55)
[2020-08-28] MEDS ORDERED: LIDOCAINE-MPF 2% ,5ML ONE (13:19)
[2020-08-28] MEDS ORDERED: KETOROLAC 30 MG/1 ML ONE (13:20)
[2020-08-28] MEDS ORDERED: BUPIVACAINE/PF-EPI 0.5% 1:200K INFIL ONE (13:24)
[2020-08-28] MEDS ORDERED: OXYcodone 5 MG/5 ML ORAL.SOL UDC ONE (14:27)
[2020-08-28] MEDS: FENTANYL PF 100 MCG/2ML IV PRN ×2 (14:29→14:36)
[2020-08-28] MEDS ORDERED: HYDROmorphone 2 MG/ML, 1ML ONE (14:38)
[2020-08-28] MEDS: HYDROmorphone 1 MG/ML, 1ML INJ IVPush PRN ×3 (14:39→15:22)
== END 2020-08-28 17:30 | disposition home or self-care (01) ==
LOC: CFH 09:41 → OUT 17:30
PROVIDERS: ATTEND Surgery
DX: R92.8 Other abnormal and inconclusive findings on diagnostic imaging of breast (principal); N60.41 Mammary duct ectasia of right breast; I25.10 Atherosclerotic heart disease of native coronary artery without angina pectoris; M32.9 Systemic lupus erythematosus, unspecified; I50.9 Heart failure, unspecified; F15.90 Other stimulant use, unspecified, uncomplicated; Z79.899 Other long term (current) drug therapy; Z87.891 Personal history of nicotine dependence; Z20.822 Contact with and (suspected) exposure to COVID-19; Z98.890 Other specified postprocedural states; Z79.82 Long term (current) use of aspirin; Z72.89 Other problems related to lifestyle
CPT/HCPCS: 19125; 19285; 76098; 77065; 88307; J0171; J0690; J1100; J1170; J1885; J2250; J2405; J2704; J3010; J7120

== ENCOUNTER → 2020-09-13 | Outpatient (CLI) | payer MEDICAID ==
[~2020-09-13] MED LIST changes: -EPHEDRINE 50 MG/ML, 1ML IVPush PRN; -LABETALOL 5MG/ML, 20ML IV PRN; -ONDANSETRON 2MG/ML, 2ML IVPush PRN; -OXYcodone 5 MG/5 ML ORAL.SOL UDC PO PRN; -PROMETHAZINE 25 MG/ML, 1ML IVPush PRN; -hydrALAzine 20 MG/ML, 1ML IV PRN
== END | disposition home or self-care (01) ==
LOC: CFH 12:13
PROVIDERS: ATTEND Internal Medicine Cardiovascular Disease
DX: I08.2 Rheumatic disorders of both aortic and tricuspid valves (principal); I25.10 Atherosclerotic heart disease of native coronary artery without angina pectoris
CPT/HCPCS: 93306; 93356

== ENCOUNTER 2020-12-14 19:47 | Emergency (ER) | payer MEDICAID ==
[~2020-12-14] VITALS: Ht 170.2 cm; Wt 78.3 kg
[~2020-12-14 19:47] MED LIST changes: -LISI2.5T PO; +LISI2.5T12 PO; +OXYC1TAB16 PO; -OXYC1TAB17 PO
[2020-12-14 19:58] VITALS: BP 151/89
[2020-12-14 20:52] LABS: BASOPHILS % (AUTO) 1 % (0-1); EOSINOPHILS % (AUTO) 4 % (1-7); LYMPHOCYTES % (AUTO) 55 % (22-44); MEAN CORPUSCULAR HEMOGLOBIN 29.4 pg (27.0-34.8); MEAN CORPUSCULAR HGB CONC 33.7 g/dL (32.4-35.8); MEAN PLATELET VOLUME 8.9 fL (7.4-10.4); MONOCYTES % (AUTO) 7 % (2-9); NEUTROPHILS % (AUTO) 34 % (42-75); PLATELET COUNT 182 x10^3/uL (130-400); RED BLOOD COUNT 4.35 x10^6/uL (3.82-5.3); RED CELL DISTRIBUTION WIDTH 13.5 % (9.6-15.2)
[2020-12-14 21:05] LABS: ALANINE AMINOTRANSFERASE 21 U/L (12-78); ALBUMIN 3.1 g/dL (3.4-5.0); CALCIUM 8.4 mg/dL (8.5-10.1)
[2020-12-14 21:09] LABS: ALKALINE PHOSPHATASE 78 U/L (45-117); BILIRUBIN,TOTAL 0.2 mg/dL (0.2-1.0); TOTAL PROTEIN 6.3 g/dL (6.4-8.2)
[2020-12-14 21:20] LABS: ANION GAP 5 mmol/L (5-15); CHLORIDE 108 mmol/L (98-107)
--- NOTE | 2020-12-15 00:47 | NUR ---
PT REFUSING TO STAY TO SEE MD. PT LEFT AMA AND REFUSED TO SIGN PAPERWORK
== END 2020-12-15 00:51 | disposition left against medical advice (07) ==
LOC: ED 20:00
DX: M79.89 Other specified soft tissue disorders (principal); R06.02 Shortness of breath
CPT/HCPCS: 36415; 71045; 80053; 83880; 85025; 93005; 99285